=== PATIENT | male | born 1975 ===

== ENCOUNTER 2017-02-13 03:31 | Emergency (ER) | payer BC ==
[2017-02-13 04:09] VITALS: BMI 31.3
[2017-02-13 04:13] VITALS: BP 120/71; PULSE 58; RESP 16; TEMP 98.8; O2SAT 98
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
[2017-02-13] MEDS ORDERED: TDAP Vaccine 0.5 mL Syr IM ONE (05:23)
--- NOTE | 2017-02-13 08:30 | RAD ---
PROCEDURE: Right Hand Radiographs. HISTORY: r/o fb COMPARISON: None available. FINDINGS: BONES: No acute displaced fracture. JOINTS: No dislocation. SOFT TISSUES: Unremarkable. No evidence of radiopaque foreign body. OTHER FINDINGS: None. IMPRESSION: No acute displaced fracture, dislocation, or significant joint effusion identified. If symptoms persist, or if there is continued clinical concern, x-ray follow-up in 7-10 days should be considered.
== END 2017-02-13 05:56 | disposition home or self-care (01) ==
LOC: ED 03:31
DX: S61.411A Laceration without foreign body of right hand, initial encounter (principal); S40.812A Abrasion of left upper arm, initial encounter; X99.0XXA Assault by sharp glass, initial encounter; Y92.89 Other specified places as the place of occurrence of the external cause; Y99.0 Civilian activity done for income or pay; Z23 Encounter for immunization